=== PATIENT | female | born 1975 | race Caucasian/White ===

== ENCOUNTER 2016-08-04 16:58 | Emergency (ER) | payer SELFPAY | END 2016-08-04 17:21 | disposition home or self-care (01) | LOC: CFTX 16:58 | DX: M25.461 Effusion, right knee (principal); I10 Essential (primary) hypertension; Z98.51 Tubal ligation status | CPT/HCPCS: 29530; 99283 ==

== ENCOUNTER → 2016-09-04 | Outpatient (CLI) | payer OTHER ==
--- NOTE | ~2016-09-04 | MR104 ---
[facility] A Service of [facility] / [facility] RADIOLOGY TEXT RESULTS PATIENT: MACARENA RAMAN LOCATION: [facility] : 75 UNIT #: [id number] AGE: [address]: Tori Jimenez SEX: F ORDER DR: [id number] [facility] [address] [place], [place] [address] [id number] MR#: [id number] Acc #: [id number] NAME: MACARENA RAMAN : 1975 SEX: F STUDY DATE/TIME: 09/04/2016 14:57 UNIT: [facility] ROOM: STUDY DESCRIPTION: MR Knee Wo Contrast Rt Attending Physician: Tori Jimenez P.A.-C. Referring Physician: Tori Jimenez P.A.-C. Ordering Physician: Tori Jimenez P.A.-C. Primary Care Physician: [facility] REPORT This report is preliminary unless electronic signature is present. EXAM MRI of the right knee without contrast HISTORY 41-year-old female right knee pain and inflammation x1 month. Hurts to walk. Knee gets inflamed then gives out. No known injury. FINDINGS Multiplanar, multiecho imaging was performed of the right knee utilizing a high field magnet and dedicated protocol. Examination demonstrates mild lateral subluxation of the patella and moderate-grade chondromalacia throughout the lateral patellar facet. There may be areas of full-thickness cartilage loss inferior patella. No marrow edema identified. No significant knee effusion. Medial and lateral menisci appear intact. Medial and lateral compartment articular cartilage unremarkable. Cruciate and collateral ligaments appear normal. The extensor mechanism appears normal. Extraarticular soft tissues appear normal. Patient does demonstrate mild patella ashia. 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 Dictated by... Bravo Melgoza M.D. THIS IS AN ELECTRONICALLY VERIFIED REPORT Bravo Melgoza M.D. at 09/06/2016 1:58 PM MALIKA/ciaran [facility]. [facility] A Service of [facility] / [facility] RADIOLOGY TEXT RESULTS PATIENT: MACARENA RAMAN LOCATION: [facility] : 75 UNIT #: [id number] AGE: [address]: Tori Jimenez SEX: F ORDER DR: TD: 09/05/2016 13:34 JOB #: [id number] MRI CENTER REPORT Page 1 of 1 COPY
== END | disposition home or self-care (01) ==
LOC: CMRI 14:10
DX: M25.461 Effusion, right knee (principal); M22.41 Chondromalacia patellae, right knee
CPT/HCPCS: 73721